=== PATIENT | female | born 1935 | race Caucasian/White ===

== ENCOUNTER 2021-02-14 11:23 | Inpatient (IN) | payer MEDICARE, SELFPAY ==
[2021-02-14] VITALS (8 sets, daily range): BP systolic 133–174; BP diastolic 67–88; PULSE 72–91; RESP 12–18; TEMP 36.3–37.2; O2SAT 97–100; BMI 23.7
--- NOTE | ~2021-02-14 | XR_ITS ---
EXAMINATION: XR chest 1V portable INDICATION: Hyponatremia TECHNIQUE: Portable AP chest at 1821 hours COMPARISON: None available FINDINGS: The lungs are free of acute opacities. There is no pleural effusion or pneumothorax. The ca rdiomediastinal silhouette is normal. There is osteoarthritis of the shoulders. IMPRESSION: 1. No acute cardiopulmonary abnormality. Reviewed, dictated and finalized at location A.
[2021-02-14 12:28] LABS: Basophils Percent Auto 0.1 % (0.2-1.2); Hematocrit 31.4 % (37.0-47.0); Hemoglobin 11.6 g/dL (12.0-15.0); Immature Granulocyte Absolute 0.05 K/mm3 (0.00-0.031); Immature Granulocyte Percent A 0.5 % (0-0.5); Lymphocytes Absolute Auto 0.48 K/mm3 (0.9-3.2); Lymphocytes Percent Auto 4.8 % (18.3-44.2); Mean Corpuscular HGB Conc 36.9 g/dl (32-36); Mean Corpuscular Hemoglobin 34.2 pg (26-34); Mean Corpuscular Volume 92.6 fl (80-100); Mean Platelet Volume 8.5 fl (7.4-10.4); Monocytes Absolute Auto 0.6 K/mm3 (0.1-0.6); Neutrophils Absolute Auto 8.9 K/mm3 (1.3-6.7); Neutrophils Percent Auto 88.6 % (45.5-73.1); Platelet Count Result 250 k/mm3 (150-375); Red Blood Count 3.39 M/mm3 (4.2-5.4); Red Cell Distribution Width 13.3 % (11.5-14.5)
[2021-02-14 12:39] LABS: Partial Thromboplastin Time 33.6 SECONDS (22.3-36.8); Prothrombin Time 12.9 Seconds (11.1-14.7)
[2021-02-14 12:57] LABS: Alanine Aminotransferase 32 U/L (4-35); Albumin Level 4.6 g/dL (3.5-5.1); Alkaline Phosphatase 38 U/L (38-126); Anion Gap 9 mmol/L (8-16); Aspartate Amino Transferase 41 U/L (14-36); Blood Urea Nitrogen 9 mg/dL (7-17); Calcium 9.1 mg/dL (8.4-10.2); Carbon Dioxide 23 mmol/L (22-30); Chloride 82 mmol/L (98-107); Estimated CRCL calculation 43 ml/min; Estimated Glomerular Filt Rate > 60; Glucose 145 mg/dL (65-110); Potassium 3.4 mmol/L (3.4-5.0); Sodium 114 mmol/L (137-145)
[2021-02-14 13:02] LABS: Bilirubin,Total 0.9 mg/dL (0.2-1.3)
--- NOTE | 2021-02-14 14:13 | ED.GENADULT ---
HPI - General Adult General Chief complaint: GI Bleed Stated complaint: WEAKNESS Time Seen by Provider: 02/14/21 13:01 Source: patient History of Present Illness HPI narrative: Patient is a 85 y/o female complaining of severe generalized weakness starting 5 days ago. There is no known alleviating or exacerbating factor. She was seen at [facility] 5 days ago and diagnosed with colitis based on CT scan done there. Her symptoms have not improved since then. She also has some nausea, vomiting and diarrhea with bloody stool. She has no abdominal pain. Related Data Home Medications Medication Instructions Recorded Confirmed amlodipine 02/14/21 02/14/21 ciprofloxacin HCl 02/14/21 folic acid 02/14/21 hydrochlorothiazide 02/14/21 lorazepam 02/14/21 methotrexate sodium 02/14/21 metronidazole 02/14/21 omeprazole 02/14/21 ondansetron 02/14/21 pravastatin 02/14/21 quinapril mg 02/14/21 sulfamethoxazole-trimethoprim tablet 02/14/21 Allergies Allergy/AdvReac Type Severity Reaction Status Date / Time levofloxacin Allergy Unknown Rash Verified 02/14/21 11:39 Penicillins Allergy Unknown Rash Verified 02/14/21 11:39 tetracycline Allergy Unknown Rash Verified 02/14/21 11:39 Review of Systems Constitutional: Constitutional: Denies chills, Denies fever(s), Denies headache(s) and Reports weakness Eyes: Eyes: Denies blurry vision ENT: Denies headache(s) and Denies neck pain Cardiovascular: Cardiovascular: Denies chest pain and Denies dyspnea Respiratory: Respiratory: Denies cough and Denies dyspnea Gastrointestinal: Gastrointestinal: Denies abdominal pain, Reports hematochezia, Reports diarrhea, Reports nausea and Reports vomiting Genitourinary: Genitourinary: Denies hematuria and Denies dysuria Musculoskeletal: Musculoskeletal: Denies back pain and Denies neck pain Neurologic: Denies headache(s) and Reports weakness PMFSH Social History Social History Smoking status: Never smoker Alcohol intake: current Exam Const: General: no acute distress and well developed Orientation/consciousness: oriented to person, oriented to place, oriented to time and patient oriented x3 HENMT: Head: normocephalic Ears: external ears normal General nose exam: Normal external nose present Eyes: General: appearance normal, both eyes and all related structures Conjunctivae: conjunctivae normal Neck: Neck: normal visual inspection and full ROM Chest: Chest palpation & inspection: normal inspection of the chest and no tenderness Resp: Effort & Inspection: normal respiratory effort Auscultation: clear to auscultation bilaterally Cardio: Rate: regular rate Rhythm: regular rhythm GI: GI Palp: No abdominal tenderness and Yes Soft to palpation Skin: General skin exam: normal color and turgor normal Neuro: General: oriented to person, oriented to place, oriented to time and patient oriented x3 Cognition (Neuro): normal cognition Extrem: General: normal to inspection, full ROM and no pedal edema Psych: Appearance: grossly normal Mental Status: mental status grossly normal Affect: normal affect Course Consultations Consultation #1: Discussed with KIRBY Matson, who agrees to admit. Date: 02/14/21 Time: 15:00 Consultation #2: Discussed with Dr Scott, who agrees to consult. Date: 02/14/21 Time: 15:06 Consultation #3: Discussed with Dr. Nettles, who agrees to admit. Date: 02/14/21 Time: 15:25 Vital Signs Vital signs: Vital Signs Temperature 36.6 C 02/14/21 11:28 Pulse Rate 89 02/14/21 11:28 Respiratory Rate 16 02/14/21 11:28 Blood Pressure 174/69 H 02/14/21 11:28 Pulse Oximetry 98 02/14/21 11:28 Temperature 36.6 C 02/14/21 11:28 Pulse Rate 76 02/14/21 15:48 Respiratory Rate 15 02/14/21 15:48 Blood Pressure 146/78 H 02/14/21 15:31 Pulse Oximetry 100 02/14/21 15:48 Medical Decision Making Vital S
[2021-02-14] MEDS: SODIUM CHLORIDE 0.9% IV 1,000 ML 999 ML IV CONT (15:00)
--- NOTE | 2021-02-14 15:18 | ECG_ITS ---
Measurements Intervals [place] Rate: 81 P: 56 HI: 162 QRS: 4 QRSD: 94 T: 10 QT: 375 QTc: 438 Interpretive Statements SINUS RHYTHM BASELINE ARTIFACT- I, II, III, AVR, AVL, AVF, V1-V6 NORMAL ECG Electronically Signed On 02-14-2021 16:26:47 CDT by Theo Proctor D.O.
[2021-02-14] MEDS: KETOROLAC 15 MG/ML VIAL (*BKC) IV PUSH (15:41)
--- NOTE | 2021-02-14 17:08 | PM.CNNEP ---
Assessment and Plan Assessment and plan (1) Hyponatremia: Code(s): E87.1 - Hypo-osmolality and hyponatremia Status: Acute Assessment and Plan: acute versus chronic versus acute on chronic reportedly had a sodium of 127mmol/L about 5 days ago when seen at OSH hold HCTZ check urine electrolytes check TSH, cortisol, SPEP, UPEP, kappa/lambda ratio; check CXR serial sodium levels based on urine electrolytes, consider fluid restriction attempt to get old records for PCP regarding previous sodium levels goal of correction is 4 - 6mmol/L in 24 hours (but not to exceed 8mmol/L) (2) Colitis: Code(s): K52.9 - Noninfective gastroenteritis and colitis, unspecified Status: Acute Assessment and Plan: as noted by previous imaging studies on Flagyl and Cipro consider GI consultation (3) Weakness: Code(s): R53.1 - Weakness Status: Acute Assessment and Plan: presumably due to #2 and possibly worsened by #1 PT/OT as able continue therapy directed at #1 and #2 (4) Hypertension: Code(s): I10 - Essential (primary) hypertension Status: Chronic Assessment and Plan: reasonable control at this time follow trend of hemodynamics Will continue to follow. History of Present Illness Reason for Consult Consult date: 02/15/21 Reason for consult: hyponatremia Chief Complaint Chief complaint: colitis History of Present Illness Narrative: The patient is a 85 y/p female with a past medical history as outlined below who presented to [facility] ER this afternoon with complains of worsening generalized weakness. The patient states that her symptoms of weakness have been going on for about the last 5-7 days if not longer. Associated symptoms included nausea, vomiting, as well as diarrhea. It should also be noted that she was seen at [facility] about a week ago for similar symptoms. From review of the outside hospital records, routine blood test demonstrated relatively stable CBC although her sodium level was noted somewhat low at at 127. CT scan of the abdomen pelvis was significant for sigmoid colitis without any evidence of bowel obstruction as well vascular disease in her renal arteries, postoperative changes from her hysterectomy, and degenerative joint disease. She apparently was in the ER for about 5 hours but was not admitted and was discharged on oral antibiotic therapy for the aforementioned colitis (Flagyl and Bactrim). As her symptoms did not improve and actually seem to be getting progressively worse, she presented to [facility] ER for further evaluation. Workup and evaluation at [facility] Emergency room demonstrated her profound weakness with repeat labs demonstrated a stable hemoglobin and hematocrit but her sodium level was worse at 114. Her chest x-ray was negative and it was presumed that her hyponatremia was due to the a for mentioned GI loss in the form of vomiting and diarrhea. She was subsequently started on IV fluids with subsequent admission to the hospital for further therapy. Her repeat sodium after being on IV fluids had incremented to 117. Renal consultation was requested due to her hyponatremia. Unfortunately, I am not entirely clear how acute or chronic this condition is. As already mentioned, she had a relatively low sodium level about a week ago when she was evaluated at [facility] ER. Repeat testing here and demonstrated worsening of her hyponatremia in comparison to what it was a week ago but I am not entirely sure where her baseline sodium level normally runs. However, with administration of IV normal saline, her sodium level has improved to 117 at the time of my evaluation. She does not report any excessive fluid intake particularly given her nausea and vomiting and actually reports poor oral intake because of the symptoms. She does take hydrochlorothiazide as a chronic
--- NOTE | 2021-02-14 17:50 | PC.NURSE ---
This patient, Mindy Oliver, was admitted to [facility] Surg Room 330-01. Patient/family oriented to hospital policies and general routines including ID bracelet, bed and alarms, visiting hours, pain management, procedures, bathroom and other care routines, personal items, smoking policy, room service/diet, and visiting hours. Information on how to activate the Rapid Response Team has been discussed. Patient/Family are encouraged to report perceived risks to care and to ask questions if they do not understand what they are told or what they should do.
[2021-02-14] MEDS: SODIUM CHLORIDE 0.9% IV 1,000 ML 50 ML IV CONT (18:37)
[2021-02-14 18:41] LABS: Sodium 117 mmol/L (137-145)
[2021-02-14] MEDS: metroNIDAZOLE 500 MG/ISO 100ML 500 MG/100 ML BAG 100 MG IVPB (19:23)
--- NOTE | 2021-02-14 21:29 | PM.IMHP ---
H&P: HPI History of Present Illness Date/Time: 02/14/21 21:29 this is a 85-year-old female patient came to the emergency room after complaining of severe generalized weakness. This started about 5 days ago. The patient stated she has had some nausea and vomiting as well as some diarrhea. She stated that she went to [facility] this past Sunday with the vomiting and dizziness. She stated that she was having blood in her stools well. She does have a history of colitis. The patient stated that she was started on Bactrim and Flagyl. She stated if she was not able to tolerate the Bactrim made her sick to her stomach. She then called her primary care doctor who then placed the patient on Cipro and she continue with Flagyl. The patient also had a urinary tract infection. The patient stated that she has been dizzy and she fell 2 times on Sunday. Her daughter came to stay with her because she has been feeling weak. On 02/09/[address] a [address] of the abdomen and pelvis at [facility]. It was read as sigmoid colitis without associated bowel obstruction. Cardiomegaly and atherosclerotic vascular disease. There was greater than 50% stenosis of the right renal artery origin. Consider Cardiology consultation. Postoperative changes of hysterectomy. Left hip arthroplasty and possibly also appendectomy. Advanced lumbar degenerative disc disease and facet arthropathy with multilevel significant neural foraminal stenosis bilaterally. This could be characterized with non contrast MRI of the lumbar spine. Chest x-ray at [facility] on 02/09/2021 was read as no acute intrathoracic process. The patient stated that she was in their ER for 5 hours and was not admitted. Her sodium was noted to be 127 while at the hospital at [facility] on 02/09 and her potassium was noted to be 3.1. Her H&H was 11.7 and 33.0 on the . Her urine had 2+ nitrates but was negative for everything else. Here at [facility] today her H&H was 11.6 and 31.4 which is comparable to [facility] results. The sodium here was 114 and then came up to 117. Chloride 82. Potassium was 3.4. The patient stated that she does take hydrochlorothiazide at home. Her chest x-ray was read as no acute cardiopulmonary abnormalities. Nephrology has seen the patient and recommends fluid restrictions. The patient was given Toradol in the ER and IV fluids. The patient is being admitted to inpatient services on the date of service of 02/14/2021. Chief Complaint: Weakness Review of Systems Review of Systems: All systems reviewed & are unremarkable except as noted in HPI and below Constitutional: Constitutional: Reports as per HPI and Reports no additional constitutional complaints Eyes: Eyes: Reports as per HPI and Reports no additional eye complaints ENT: Reports system reviewed and no additional complaints, except as documented and Reports Normal hearing present Cardiovascular: Cardiovascular: Reports no additional cardiovascular complaints Respiratory: Respiratory: Reports no additional respiratory complaints and Reports no additional respiratory complaints Gastrointestinal: Gastrointestinal: Reports as per HPI and Reports no additional gastrointestinal complaints Musculoskeletal: Musculoskeletal: Reports no additional musculoskeletal complaints Integumentary/Breasts: Skin/Breast: Reports system reviewed and no additional complaints, except as docu and Reports as per HPI Neurologic: Reports system reviewed and no additional complaints, except as documented, Reports as per HPI and Reports Normal hearing present Psychiatric: Psychiatric: Reports no additional psychiatric complaints and Reports as per HPI Endocrine: Endocrine: Reports no additional endocrine complaints Hematologic/Lymphatic: Hematologic/Lymphatic: Reports no additional hematologic/lymphatic complaints Allergic/Immunologic: Allergic/Immunologic: Reports no additional allergic/immunologic complaints [facility]
[2021-02-14 21:39] LABS: Hematocrit 28.6 % (37.0-47.0); Hemoglobin 10.9 g/dL (12.0-15.0)
[2021-02-14 22:05] LABS: Sodium 117 mmol/L (137-145)
[2021-02-14] MEDS: LORazepam (*CRX) 0.5 MG TABLET PO (22:44)
[2021-02-14] MEDS: PRAVASTATIN SODIUM 10 MG TABLET PO (22:44)
--- NOTE | 2021-02-15 | ECHO_ITS ---
Patient Info Name: Mindy Oliver Age: 85 years : 1935 Gender: Female Ht: 63 in Wt: 131 lbs BSA: 1.63 m2 HR: 85 bpm BP: 128 / 62 mmHg Heart Rhythm: Sinus Rhythm Exam Date: 02/15/2021 10:14 AM Exam Location: [facility] Patient Status: Inpatient Admit Date: 02/14/2021 Staff Ordering Physician: Huyen Dominguez NP Wardrobe Attendant: Liam Bermudez RDCS, RT Attending Provider: Rekha Baldwin PA-C Referring Physician: Alberto TATE; Exam Type: CA echo doppler color flow Study Info Indications R01.1 - Cardiac murmur, unspecified Complete two-dimensional, color flow and Doppler transthoracic echocardiogram is performed. Strain analysis performed. Summary 1. Complete two-dimensional, color flow and Doppler transthoracic echocardiogram is performed. 2. Left ventricular chamber size, wall thickness, systolic function are normal with no regional wall motion abnormalities with an estimated ejection fraction of 60-65%. Global longitudinal strain was also normal -19%. Grade 1 diastolic dysfunction is present. 3. There is mild aortic valve calcification without stenosis. 4. There is trace tricuspid valve regurgitation. 5. Pulmonary pressure could not be estimated on this study. 6. Normal sinus rhythm. Left Ventricle Left ventricular chamber size, wall thickness, systolic function are normal with no regional wall motion abnormalities with an estimated ejection fraction of 60-65%. Global longitudinal strain was also normal -19%. Grade 1 diastolic dysfunction is present. Left ventricular chamber dimension is normal. Left ventricular systolic function is normal, estimated at 60-65%. There is no increased left ventricular wall thickness. Left ventricular septal wall motion is normal. The left ventricular diastolic function is grade I diastolic dysfunction. Global longitudinal strain is normal at 19 %. Right Ventricle Right ventricular chamber dimension is normal. Right ventricular systolic function is normal. Left Atria Left atrial chamber dimension is normal. Right Atria Right atrial chamber dimension is normal. Aortic Valve The aortic valve is trileaflet. There is no aortic valve sclerosis. There is no aortic valve stenosis. There is no aortic valve regurgitation. There is mild aortic valve calcification without stenosis. Pulmonic Valve The pulmonic valve is normal. There is no pulmonic valve stenosis. There is no pulmonic regurgitation. Mitral Valve The mitral valve has normal leaflets. There is no mitral valve stenosis. There is no mitral valve regurgitation. Tricuspid Valve The tricuspid valve leaflets are normal. There is no significant tricuspid valve stenosis. There is trace tricuspid valve regurgitation. No pulmonary hypertension, estimated pulmonary arterial systolic pressure is Empty. Pericardium/Pleural The pericardium appears normal. There is no pericardial effusion. Inferior Vena Cava Normal inferior vena cava with >50% collapse upon inspiration consistent with Empty right atrial pressure, Empty. Aorta The aortic root size at the sinus of Valsalva is normal. The prox ascending aorta size is normal. Left Ventricular Outflow Tract Name Value Normal LVOT 2D
[2021-02-15 02:41] LABS: Hematocrit 28.4 % (37.0-47.0); Hemoglobin 10.4 g/dL (12.0-15.0)
[2021-02-15 02:49] LABS: Lactic Acid Reflex 0.6 mmol/L (0.7-2.1)
[2021-02-15 03:00] LABS: Alanine Aminotransferase 25 U/L (4-35); Albumin Level 3.6 g/dL (3.5-5.1); Alkaline Phosphatase 29 U/L (38-126); Anion Gap 10 mmol/L (8-16); Aspartate Amino Transferase 34 U/L (14-36); Bilirubin,Total 0.9 mg/dL (0.2-1.3); Blood Urea Nitrogen 8 mg/dL (7-17); CRP 1.5 mg/dL (<1.0); Calcium 8.5 mg/dL (8.4-10.2); Carbon Dioxide 19 mmol/L (22-30); Chloride 90 mmol/L (98-107); Creatine Kinase 430 U/L (30-135); Estimated CRCL calculation 42 ml/min; Estimated Glomerular Filt Rate > 60; Glucose 97 mg/dL (65-110); Lactate Dehydrogenase 475 U/L (313-618); Magnesium 1.6 mg/dL (1.6-2.3); Potassium 3.1 mmol/L (3.4-5.0); Sodium 119 mmol/L (137-145)
[2021-02-15] MEDS: metroNIDAZOLE 500 MG/ISO 100ML 500 MG/100 ML BAG 100 MG IVPB ×3 (03:38→17:17)
[2021-02-15 06:00] VITALS: BP 128/62; PULSE 72; RESP 18; TEMP 36.4; O2SAT 100
[2021-02-15 06:31] LABS: Creatinine Urine 35.1 mg/dL
[2021-02-15 06:46] LABS: Creatinine Urine 34.5 mg/dL; Total Protein Urine Random 16 mg/dL; Ur Ttl Prot Creatinine Ratio 0.46 mg/mg (0-0.20)
[2021-02-15 07:13] LABS: Sodium Urine Random 26 meq/L
--- NOTE | 2021-02-15 07:17 | WPDGICN ---
Assessment and Plan Assessment and plan (1) Colitis: Code(s): K52.9 - Noninfective gastroenteritis and colitis, unspecified Status: Acute Assessment and Plan: CT scan from few days ago reviewed, she is already feeling better with flagyl probably gastroenteritis and doing better we can do colonoscopy in ~ 6-8 weeks to document healing hb is stable (2) Nausea and vomiting in adult: Code(s): R11.2 - Nausea with vomiting, unspecified Status: Acute Assessment and Plan: resolved and tolerating diet (3) Hyponatremia: Code(s): E87.1 - Hypo-osmolality and hyponatremia Status: Acute Assessment and Plan: probably multifactorial from n/v, colitis but unknown if acute on chronic correcting na slowly- monitored by nephrology patient is feeling much better today (4) Rheumatoid arthritis: Code(s): M06.9 - Rheumatoid arthritis, unspecified Status: Chronic Assessment and Plan: on low dose of prednisone at home, also MTX (5) Diarrhea: Code(s): R19.7 - Diarrhea, unspecified Status: Acute GI Consult Note Consult date/time: 02/15/21 07:17 Reason for consult: colitis, nausea and vomiting HPI: Mindy Oliver is a 85 year old female with h/o RA on MTX and low dose prednisone who came to the emergency room with progressive generalized weakness that started about 6 days ago, initially with nausea and vomiting as well as soft stools and low grade fever for which she went to [facility] ER (denies sick contacts), also small amount of blood in stools, given Bactrim and Flagyl but says that could not tolerate bactrim and her primary switched to criprofloxacin and continue flagyl. She had CT of the abdomen and pelvis at [facility] that was reviewed and showed sigmoid colitis without associated bowel obstruction, postoperative changes of hysterectomy, advanced lumbar degenerative disc disease and facet arthropathy with multilevel significant neural foraminal stenosis bilaterally. Blood work in that visit also showed low sodium at 127, potassium 3.1, hb 11.7. Then she was released home with those antibiotics but still feeling weak and poor appetite. Repeat blood work here showed Hb 11.6 but lower sodium 114. Today is feeling better, na up to 123 (nephrology on board and monitoring for overcorrection), tolerating soft diet, no blood in stools or pain. She had colonoscopies in the past, last time about 5 years ago. Review of Systems Constitutional: Constitutional: Reports weakness Eyes: Eyes: Denies blurry vision ENT: Reports Normal hearing present Cardiovascular: Cardiovascular: Denies chest pain Respiratory: Respiratory: Denies dyspnea Gastrointestinal: Gastrointestinal: Reports diarrhea, Reports nausea and Reports vomiting Genitourinary: Genitourinary: Denies hematuria Musculoskeletal: Musculoskeletal: Denies neck pain Integumentary/Breasts: Skin/Breast: Denies dry skin Neurologic: Reports system reviewed and no additional complaints, except as documented Psychiatric: Psychiatric: Reports no additional psychiatric complaints [facility] Past Medical History Medical History (Updated 02/15/21 @ 14:03 by Forest Castanon MD) Anxiety Chronic GERD Diarrhea Hyperlipidemia Hypertension Nausea and vomiting in adult Rheumatoid arthritis Surgical History Surgical History (Updated 02/14/21 @ 21:45 by Huyen Dominguez NP) H/O breast biopsy Left breast H/O cataract extraction H/O myringotomy H/O toe surgery H/O: hysterectomy History of appendectomy History of left hip replacement History of left knee replacement Family History Family History (Updated 02/14/21 @ 21:40 by Huyen Dominguez NP) Father Hypertension CAD (coronary artery disease) TIA (transient ischemic attack) Mother Hypertension Heart attack Acute myocardial infarction Carotid artery disease Social History Social History (Updated 02/14/21 @ 21:40 by
[2021-02-15 08:34] VITALS: PULSE 88
[2021-02-15] MEDS: predniSONE 5 MG TABLET PO (08:34)
[2021-02-15] MEDS: FOLIC ACID 1 MG TABLET PO (08:34)
[2021-02-15] MEDS: atenoloL 25 MG TABLET PO (08:34)
[2021-02-15] MEDS: amLODIPine BESYLATE 5 MG TABLET PO (08:34)
[2021-02-15] MEDS: LORazepam (*CRX) 0.5 MG TABLET PO ×2 (08:39→21:45)
[2021-02-15 09:01] LABS: Anion Gap 7 mmol/L (8-16); Blood Urea Nitrogen 8 mg/dL (7-17); Calcium 8.7 mg/dL (8.4-10.2); Carbon Dioxide 24 mmol/L (22-30); Chloride 92 mmol/L (98-107); Estimated CRCL calculation 42 ml/min; Estimated Glomerular Filt Rate > 60; Glucose 112 mg/dL (65-110); Potassium 3.1 mmol/L (3.4-5.0); Sodium 123 mmol/L (137-145)
[2021-02-15] MEDS: ACETAMINOPHEN 500 MG TABLET 1000 MG PO ×2 (09:54→21:45)
[2021-02-15] MEDS: PANTOPRAZOLE SOD SESQUIHYDRATE 20 MG TAB PO (10:07)
[2021-02-15] MEDS: DEXTROSE 5% IN WATER 500 ML 200 ML IV CONT (10:20)
--- NOTE | 2021-02-15 10:22 | P.PNNP_ITS ---
Progress Note: A&P Assessment and Plan (1) Hyponatremia: Code(s): E87.1 - Hypo-osmolality and hyponatremia Status: Acute Assessment and Plan: * acute versus chronic versus acute on chronic * evidence of overcorrection by AM labs - will give D5W IVFs and stop fluid restriction for now - repeat sodium level one hour after D5W infusion * follow up on SPEP/UPEP, kappa/lamda ratio, and serum/urine osmolality * urine sodium low somewhat suggestive of volume depletion * CXR negative; TSH okay but cortisol lowish (but on steroids already so hard to interpret) * attempt to get old records for PCP regarding previous sodium levels * goal of correction is 4 - 6mmol/L in 24 hours (but not to exceed 8mmol/L) - she has overcorrected as she should not have exceeded 122mmol/L prior to noon today - administration of D5W as above * follow repeat sodium levels (2) Colitis: Code(s): K52.9 - Noninfective gastroenteritis and colitis, unspecified Status: Acute Assessment and Plan: * as noted by previous imaging studies * on Flagyl and Cipro * Gastroenterology consulted for further evaluation (3) Weakness: Code(s): R53.1 - Weakness Status: Acute Assessment and Plan: * presumably due to #2 and possibly worsened by #1 * PT/OT as able * continue therapy directed at #1 and #2 (4) Hypertension: Code(s): I10 - Essential (primary) hypertension Status: Chronic Assessment and Plan: * reasonable control at this time * follow trend of hemodynamics Will continue to follow. Subjective Date/time seen: 02/15/21 10:22 Overall, states she is feeling/doing much better in comparison to admission; feels a bit stronger at this time; no issues/problems overnight or earlier this AM; remains hemodynamically stable; no other acute complaints voiced at the time of my visit. Exam Narrative: General: WD/WN female in NAD Heart: normal S1 and S2; no rub Lungs: clear to auscultation Abdomen: soft, nontender, nondistended, positive bowel sounds Extremities: no cyanosis or clubbing; no edema Skin: warm and dry Objective Data Vital Signs Vital Signs: Vital Signs Temp Pulse Resp BP Pulse Ox 02/15/21 08:34 88 02/15/21 06:00 36.4 C L 72 18 128/62 100 02/14/21 22:00 36.3 C L 72 18 158/67 H 02/14/21 20:15 72 18 02/14/21 17:50 37.2 C 88 18 170/75 H 02/14/21 17:29 77 16 133/85 97 02/14/21 15:48 76 15 02/14/21 15:31 80 12 146/78 H 02/14/21 11:48 91 13 148/88 H 99 02/14/21 11:28 36.6 C 89 16 174/69 H 98 Intake/Output Intake/Output: Intake & Output 02/12/21 02/13/21 02/14/21 02/15/21 23:59 23:59 23:59 23:59 Intake Total 1100 830 Output Total 550 Balance 1100 280 Meds/Results Medications: Active Medications Generic Name Dose Route Start Last Admin Trade Name Chinoq PRN Reason Stop Dose Admin Acetaminophen 1,000 mg 02/15/21 08:43 Acetaminophen 500 Mg Tablet PO DAILY PRN Pain Acetaminophen 1,000 mg 02/15/21 09:00 02/15/21 09:54 Acetaminophen 500 Mg Tablet PO 1,000 mg Q12H [facility] Administratio
--- NOTE | 2021-02-15 10:22 | PM.PNNEP ---
Progress Note: A&P Assessment and Plan (1) Hyponatremia: Code(s): E87.1 - Hypo-osmolality and hyponatremia Status: Acute Assessment and Plan: acute versus chronic versus acute on chronic evidence of overcorrection by AM labs - will give D5W IVFs and stop fluid restriction for now - repeat sodium level one hour after D5W infusion follow up on SPEP/UPEP, kappa/lamda ratio, and serum/urine osmolality urine sodium low somewhat suggestive of volume depletion CXR negative; TSH okay but cortisol lowish (but on steroids already so hard to interpret) attempt to get old records for PCP regarding previous sodium levels goal of correction is 4 - 6mmol/L in 24 hours (but not to exceed 8mmol/L) - she has overcorrected as she should not have exceeded 122mmol/L prior to noon today - administration of D5W as above follow repeat sodium levels (2) Colitis: Code(s): K52.9 - Noninfective gastroenteritis and colitis, unspecified Status: Acute Assessment and Plan: as noted by previous imaging studies on Flagyl and Cipro Gastroenterology consulted for further evaluation (3) Weakness: Code(s): R53.1 - Weakness Status: Acute Assessment and Plan: presumably due to #2 and possibly worsened by #1 PT/OT as able continue therapy directed at #1 and #2 (4) Hypertension: Code(s): I10 - Essential (primary) hypertension Status: Chronic Assessment and Plan: reasonable control at this time follow trend of hemodynamics Will continue to follow. Subjective Date/time seen: 02/15/21 10:22 Overall, states she is feeling/doing much better in comparison to admission; feels a bit stronger at this time; no issues/problems overnight or earlier this AM; remains hemodynamically stable; no other acute complaints voiced at the time of my visit. Exam Narrative: General: WD/WN female in NAD Heart: normal S1 and S2; no rub Lungs: clear to auscultation Abdomen: soft, nontender, nondistended, positive bowel sounds Extremities: no cyanosis or clubbing; no edema Skin: warm and dry Objective Data Vital Signs Vital Signs: Vital Signs Temp Pulse Resp BP Pulse Ox 02/15/21 08:34 88 02/15/21 06:00 36.4 C L 72 18 128/62 100 02/14/21 22:00 36.3 C L 72 18 158/67 H 100 02/14/21 20:15 72 18 100 02/14/21 17:50 37.2 C 88 18 170/75 H 100 02/14/21 17:29 77 16 133/85 97 02/14/21 15:48 76 15 100 02/14/21 15:31 80 12 146/78 H 100 02/14/21 11:48 91 13 148/88 H 99 02/14/21 11:28 36.6 C 89 16 174/69 H 98 Intake/Output Intake/Output: Intake & Output 02/12/21 02/13/21 02/14/21 02/15/21 23:59 23:59 23:59 23:59 Intake Total 1100 830 Output Total 550 Balance 1100 280 Meds/Results Medications: Active Medications Generic Name Dose Route Start Last Admin Trade Name Chinoq PRN Reason Stop Dose Admin Acetaminophen 1,000 mg 02/15/21 08:43 Acetaminophen 500 Mg Tablet PO DAILY PRN Pain Acetaminophen 1,000 mg 02/15/21 09:00 02/15/21 09:54 Acetaminophen 500 Mg Tablet PO 1,000 mg Q12H BURKE Administration Amlodipine Besylate 5 mg 02/15/21 09:00 02/15/21 08:34 Amlodipine Besylate 5 Mg Tablet PO 5 mg DAILY BURKE Administration Atenolol 25 mg 02/15/21 09:00 02/15/21 08:34 Atenolol 25 Mg Tablet PO 25 mg DAILY BURKE Administration Cyclobenzaprine HCl 10 mg 02/14/21 21:26 Cyclobenzaprine Hcl 10 Mg Tablet PO BID PRN Muscle Spasm Folic Acid 1 mg 02/15/21 09:00 02/15/21 08:34 Folic Acid 1 Mg Tablet PO 1 mg DAILY BURKE Administration Metronidazole 500 mg in 100 mls @ 100 mls/hr 02/14/21 18:00 02/15/21 09:52 Flagyl 500 Mg/Iso Soln 100 Ml IVPB 100 mls/hr Q8H BURKE Administration Dextrose 500 mls @ 200 mls/hr 02/15/21 10:05 02/15/21 10:20 Dextrose 5% In Water IV CONT 02/15/21 1
[2021-02-15 10:58] LABS: Hematocrit 31.5 % (37.0-47.0); Hemoglobin 11.9 g/dL (12.0-15.0)
[2021-02-15 14:00] VITALS: BP 129/64; PULSE 75; RESP 18; TEMP 36.6; O2SAT 99
--- NOTE | 2021-02-15 14:17 | PM.IMPN ---
Progress Note: A&P Assessment and Plan (1) Hyponatremia: Code(s): E87.1 - Hypo-osmolality and hyponatremia Status: Acute Assessment and Plan: Last sodium 123, up from 114 yesterday -no records available to me to indicate what her baseline sodium is -continue to hold hydrochlorothiazide and methotrexate -nephrology on board and has ordered pending workup (2) Colitis: Code(s): K52.9 - Noninfective gastroenteritis and colitis, unspecified Status: Acute Assessment and Plan: Outside records indicates she had sigmoid colitis -continue Flagyl, add Cipro -patient states her allergy to Levaquin is with leg weakness but that she takes Cipro very often (3) Weakness: Code(s): R53.1 - Weakness Status: Acute Assessment and Plan: Likely due to above -continue PT and OT evaluation. (4) Hypertension: Code(s): I10 - Essential (primary) hypertension Status: Chronic Assessment and Plan: Last blood pressure 129/64 - Continue with atenolol and amlodipine. (5) Hyperlipidemia: Code(s): E78.5 - Hyperlipidemia, unspecified Status: Chronic Assessment and Plan: Chronic and stable, Continue with pravastatin. (6) Anxiety: Code(s): F41.9 - Anxiety disorder, unspecified Status: Chronic Assessment and Plan: Chronic and stable. Continue Ativan (7) Chronic GERD: Code(s): K21.9 - Gastro-esophageal reflux disease without esophagitis Status: Chronic Assessment and Plan: Continue Protonix (8) Rheumatoid arthritis: Code(s): M06.9 - Rheumatoid arthritis, unspecified Status: Chronic Assessment and Plan: Hold methotrexate Time Spent With Patient Time with patient: 25 - 35 minutes Subjective Date/time seen: 02/15/21 14:17 Interval history: Pt is a 85-year-old female here for weakness and hyponatremia. Patient was seen today and states she is feeling much better. She feels stronger than she did yesterday. She had a little bit of soft stool yesterday with some blood mixed in and on the toilet paper that she attributes to her. She denies abdominal pain, chest pain, shortness of breath, nausea, vomiting or fevers. She is very worried about not being on her Cipro as she was told she had a urinary tract infection. She states that she can take Cipro but is unable to take Levaquin because it makes her legs weak. She has taken Cipro many times in the past and has not had any issues with that. She does mention that she has not been sleeping very well. Review of Systems Review of Systems: All systems reviewed & are unremarkable except as noted in HPI and below Exam Narrative: General: Well developed well nourished patient in NAD HEENT: normocephalic Neck: supple Neuro: Alert and oriented x4. Cranial nerves 2-12 intact. Equal strength the upper lower extremity 5/5. Able to do [id number] and rapid alternating movements CV:RRR Resp:CTA Abd: Soft, non distended. No pain to palpation. Positive bowel sounds Extremities: No swelling, erythema, or pain to palpation. Objective Data Vital Signs Vital Signs: Vital Signs - 24 hr 02/14/21 15:31 02/14/21 15:48 02/14/21 17:29 Temperature Pulse Rate 80 76 77 Respiratory Rate 12 15 16 Blood Pressure 146/78 H 133/85 Pulse Oximetry 100 100 97 02/14/21 17:50 02/14/21 20:15 02/14/21 22:00 Temperature 98.9 F 97.3 F L Pulse Rate 88 72 72 Respiratory Rate 18 18 18 Blood Pressure 170/75 H 158/67 H Pulse Oximetry 100 100 100 02/15/21 06:00 02/15/21 08:34 02/15/21 14:00 Temperature 97.5 F L 97.9 F Pulse Rate 72 88 75 Respiratory Rate 18 18 Blood Pressure 128/62 129/64 Pulse Oximetry 100 99 Intake/Output Intake/Output: Intake & Output 02/12/21 02/13/21 02/14/21 02/15/21 23:59 23:59 23:59 23:59 Intake Total 1100 1760 Output Total 550 Balance 1100 1210
[2021-02-15] MEDS: POTASSIUM CHLORIDE 20 MEQ TABLET 40 MEQ PO (14:30)
[2021-02-15 15:15] LABS: Hematocrit 32.9 % (37.0-47.0); Hemoglobin 11.8 g/dL (12.0-15.0)
--- NOTE | 2021-02-15 15:18 | PC.NURSE ---
On 02/15/21, the student, [Mery Carter ], provided care and completed [facility] documentation on this patient. I have reviewed the student's documentation and agree with the findings.
[2021-02-15 15:31] LABS: Sodium 121 mmol/L (137-145)
[2021-02-15 19:09] LABS: Sodium 125 mmol/L (137-145)
[2021-02-15 20:00] VITALS: PULSE 74; RESP 20; O2SAT 100
[2021-02-15] MEDS: CIPROFLOXACIN 500 MG TAB PO (21:45)
[2021-02-15] MEDS: PRAVASTATIN SODIUM 10 MG TABLET PO (21:46)
[2021-02-15 21:47] VITALS: O2SAT 99
[2021-02-15 22:00] VITALS: BP 156/74; PULSE 74; RESP 20; TEMP 36.3; O2SAT 100
[2021-02-15 23:13] LABS: Sodium 126 mmol/L (137-145)
[2021-02-16] MEDS: MELATONIN 5 MG TABLET PO ×2 (01:02→22:11)
[2021-02-16] MEDS: metroNIDAZOLE 500 MG/ISO 100ML 500 MG/100 ML BAG 100 MG IVPB ×3 (02:58→18:56)
[2021-02-16] MEDS: ONDANSETRON INJ 4 MG/2 ML VIAL IV PUSH (04:04)
[2021-02-16 06:00] VITALS: BP 110/53; PULSE 63; RESP 18; TEMP 36.6; O2SAT 99
[2021-02-16 06:40] LABS: Hematocrit 28.4 % (37.0-47.0); Hemoglobin 10.2 g/dL (12.0-15.0); Mean Corpuscular HGB Conc 35.9 g/dl (32-36); Mean Corpuscular Hemoglobin 34.6 pg (26-34); Mean Corpuscular Volume 96.3 fl (80-100); Mean Platelet Volume 8.8 fl (7.4-10.4); Platelet Count Result 255 k/mm3 (150-375); Red Blood Count 2.95 M/mm3 (4.2-5.4); Red Cell Distribution Width 13.6 % (11.5-14.5); White Blood Count 7.3 K/mm3 (4.5-10.0)
[2021-02-16 06:56] LABS: Albumin Level 3.6 g/dL (3.5-5.1); Anion Gap 7 mmol/L (8-16); Blood Urea Nitrogen 12 mg/dL (7-17); Calcium 8.9 mg/dL (8.4-10.2); Carbon Dioxide 22 mmol/L (22-30); Chloride 99 mmol/L (98-107); Estimated CRCL calculation 42 ml/min; Estimated Glomerular Filt Rate > 60; Glucose 106 mg/dL (65-110); Phosphorus 2.9 mg/dL (2.5-4.5); Potassium 3.5 mmol/L (3.4-5.0); Sodium 128 mmol/L (137-145)
[2021-02-16 08:00] VITALS: O2SAT 98
[2021-02-16 08:24] VITALS: O2SAT 98
[2021-02-16] MEDS: ACETAMINOPHEN 500 MG TABLET 1000 MG PO ×2 (08:43→22:11)
[2021-02-16] MEDS: FOLIC ACID 1 MG TABLET PO (08:44)
[2021-02-16] MEDS: PANTOPRAZOLE SOD SESQUIHYDRATE 20 MG TAB PO (08:44)
[2021-02-16] MEDS: amLODIPine BESYLATE 5 MG TABLET PO (08:44)
[2021-02-16] MEDS: predniSONE 5 MG TABLET PO (08:44)
[2021-02-16] MEDS: CIPROFLOXACIN 500 MG TAB PO ×2 (08:44→20:10)
[2021-02-16 08:45] VITALS: PULSE 88
[2021-02-16] MEDS: atenoloL 25 MG TABLET PO (08:45)
[2021-02-16] MEDS: LORATADINE 10 MG TABLET PO (08:46)
[2021-02-16] MEDS: LORazepam (*CRX) 0.5 MG TABLET PO ×2 (08:50→22:12)
[2021-02-16 14:00] VITALS: BP 137/55; PULSE 64; RESP 16; TEMP 36.6; O2SAT 100
--- NOTE | 2021-02-16 14:16 | WPDGIPROGNO ---
Progress Note: A&P Assessment and Plan (1) Colitis: Code(s): K52.9 - Noninfective gastroenteritis and colitis, unspecified Status: Acute Assessment and Plan: slowly improved with less diarrhea and eating more on antibiotics we can do colonoscopy 6-8 weeks as outpatient abdominal discomfort improved and only after using restroom probably go home tomorrow if na stable (2) Nausea and vomiting in adult: Code(s): R11.2 - Nausea with vomiting, unspecified Status: Acute Assessment and Plan: better, tolerating diet (3) Hyponatremia: Code(s): E87.1 - Hypo-osmolality and hyponatremia Status: Acute Assessment and Plan: monitoring closely and improved, by nephrology (4) Rheumatoid arthritis: Code(s): M06.9 - Rheumatoid arthritis, unspecified Status: Chronic (5) Diarrhea: Code(s): R19.7 - Diarrhea, unspecified Status: Acute Subjective Date/time seen: 02/16/21 14:16 Interval history: slightly better, stool getting formed Review of Systems Review of Systems: All systems reviewed & are unremarkable except as noted in HPI and below Exam Const: General: comfortable and no acute distress HENMT: General nose exam: Normal nares present Eyes: General: appearance normal, both eyes and all related structures Neck: Neck: no JVD Resp: Auscultation: clear to auscultation bilaterally Cardio: Rate: regular rate Rhythm: regular rhythm GI: Inspection: non-distended GI Palp: Yes Soft to palpation and No Guarding due to palpation present (GI) Auscultation: normal bowel sounds Skin: General skin exam: normal color Neuro: Speech: normal speech Motor exam (neuro): Normal motor muscle tone present throughout Extrem: General: normal to inspection Psych: Mental Status: mental status grossly normal Objective Data Vital Signs Vital Signs: Vital Signs - 24 hr 02/15/21 20:00 02/15/21 21:47 02/15/21 22:00 Temperature 97.3 F L Pulse Rate 74 74 Respiratory Rate 20 20 Blood Pressure 156/74 H Pulse Oximetry 100 99 100 02/16/21 06:00 02/16/21 08:00 02/16/21 08:24 Temperature 97.8 F Pulse Rate 63 Respiratory Rate 18 Blood Pressure 110/53 L Pulse Oximetry 99 98 98 02/16/21 08:45 Temperature Pulse Rate 88 Respiratory Rate Blood Pressure Pulse Oximetry Intake/Output Intake/Output: Intake & Output 02/13/21 02/14/21 02/15/21 02/16/21 23:59 23:59 23:59 23:59 Intake Total 1100 2850 830 Output Total 1250 900 Balance 1100 1600 -70 Meds/Results Medications: Active Medications Generic Name Dose Route Start Last Admin Trade Name Kyung PRN Reason Stop Dose Admin Acetaminophen 1,000 mg 02/15/21 08:43 Acetaminophen 500 Mg Tablet PO DAILY PRN Pain Acetaminophen 1,000 mg 02/15/21 09:00 02/16/21 08:43 Acetaminophen 500 Mg Tablet PO 1,000 mg Q12H BURKE Administration Amlodipine Besylate 5 mg 02/15/21 09:00 02/16/21 08:44 Amlodipine Besylate 5 Mg Tablet PO 5 mg DAILY BURKE Administration Atenolol 25 mg 02/15/21 09:00 02/16/21 08:45 Atenolol 25 Mg Tablet PO 25 mg DAILY BURKE Administration Ciprofloxacin 500 mg 02/15/21 21:00 02/16/21 08:44 Ciprofloxacin 500 Mg Tab PO 500 mg Q12HR BURKE Administration Cyclobenzaprine HCl 10 mg 02/14/21 21:26 Cyclobenzaprine Hcl 10 Mg Tablet PO BID PRN Muscle Spasm Folic Acid 1 mg 02/15/21 09:00 02/16/21 08:44 Folic Acid 1 Mg Tablet PO 1 mg DAILY BURKE Administration Metronidazole 500 mg in 100 mls @ 100 mls/hr 02/14/21 18:00 02/16/21 08:58 Flagyl 500 Mg/Iso Soln 100 Ml IVPB 100 mls/hr Q8H BURKE Administration Loratadine 10 mg 02/16/21 09:00 02/16/21 08:46 Loratadine 10 Mg Tablet PO 10 mg QAM BURKE Administration Lorazepam 0.5 mg 02/15/21 21:00 02/16/21 08:50 Lorazepam (*Crx) 0.5 Mg Tablet PO 0.5 mg Q12H BURKE Administration Melatonin 5 mg 02/15/21 21:00
--- NOTE | 2021-02-16 16:00 | PM.PNNEP ---
Progress Note: A&P Assessment and Plan (1) Hyponatremia: Code(s): E87.1 - Hypo-osmolality and hyponatremia Status: Acute Assessment and Plan: PCP records document sodium levels ~ 132 - 133 since May 2020 evidence of overcorrection by AM on 02/15/21 - stabilized with use of D5W IV fluids follow up on SPEP/UPEP, kappa/lamda ratio, and serum/urine osmolality urine sodium low somewhat suggestive of volume depletion CXR negative; TSH okay but cortisol lowish (but on steroids already so hard to interpret) goal of correction is 4 - 6mmol/L in 24 hours (but not to exceed 8mmol/L) - this is being achieved as of now follow repeat sodium levels (2) Colitis: Code(s): K52.9 - Noninfective gastroenteritis and colitis, unspecified Status: Acute Assessment and Plan: as noted by previous imaging studies on Flagyl and Cipro Gastroenterology recommendations noted (3) Weakness: Code(s): R53.1 - Weakness Status: Acute Assessment and Plan: presumably due to #2 and possibly worsened by #1 PT/OT as able continue therapy directed at #1 and #2 (4) Hypertension: Code(s): I10 - Essential (primary) hypertension Status: Chronic Assessment and Plan: reasonable control at this time follow trend of hemodynamics Will continue to follow. Subjective Date/time seen: 02/16/21 16:00 Continues to make slow and steady improvement since admission; GI symptoms seems to be stabilizing if not better in general; sodium correcting appropriately with rate of change stable following D5W IVF administration yesterday; no events/issues overnight or earlier this AM. Exam Narrative: General: WD/WN female in NAD Heart: normal S1 and S2; no rub Lungs: clear to auscultation Abdomen: soft, nontender, nondistended, positive bowel sounds Extremities: no cyanosis or clubbing; no edema Skin: warm and intact Objective Data Vital Signs Vital Signs: Vital Signs Temp Pulse Resp BP Pulse Ox 02/16/21 14:00 36.6 C 64 16 137/55 L 100 02/16/21 08:45 88 02/16/21 08:24 98 02/16/21 08:00 98 02/16/21 06:00 36.6 C 63 18 110/53 L 99 02/15/21 22:00 36.3 C L 74 20 156/74 H 100 02/15/21 21:47 99 02/15/21 20:00 74 20 100 Intake/Output Intake/Output: Intake & Output 02/13/21 02/14/21 02/15/21 02/16/21 23:59 23:59 23:59 23:59 Intake Total 1100 2850 830 Output Total 1250 900 Balance 1100 1600 -70 Meds/Results Medications: Active Medications Generic Name Dose Route Start Last Admin Trade Name Kyung PRN Reason Stop Dose Admin Acetaminophen 1,000 mg 02/15/21 08:43 Acetaminophen 500 Mg Tablet PO DAILY PRN Pain Acetaminophen 1,000 mg 02/15/21 09:00 02/16/21 08:43 Acetaminophen 500 Mg Tablet PO 1,000 mg Q12H BURKE Administration Amlodipine Besylate 5 mg 02/15/21 09:00 02/16/21 08:44 Amlodipine Besylate 5 Mg Tablet PO 5 mg DAILY BURKE Administration Atenolol 25 mg 02/15/21 09:00 02/16/21 08:45 Atenolol 25 Mg Tablet PO 25 mg DAILY BURKE Administration Ciprofloxacin 500 mg 02/15/21 21:00 02/16/21 08:44 Ciprofloxacin 500 Mg Tab PO 500 mg Q12HR BURKE Administration Cyclobenzaprine HCl 10 mg 02/14/21 21:26 Cyclobenzaprine Hcl 10 Mg Tablet PO BID PRN Muscle Spasm Folic Acid 1 mg 02/15/21 09:00 02/16/21 08:44 Folic Acid 1 Mg Tablet PO 1 mg DAILY BURKE Administration Metronidazole 500 mg in 100 mls @ 100 mls/hr 02/14/21 18:00 02/16/21 08:58 Flagyl 500 Mg/Iso Soln 100 Ml IVPB 100 mls/hr Q8H BURKE Administration Loratadine 10 mg 02/16/21 09:00 02/16/21 08:46 Loratadine 10 Mg Tablet PO 10 mg QAM BURKE Administration Lorazepam 0.5 mg 02/15/21 21:00 02/16/21 08:50 Lorazepam (*Crx) 0.5 Mg Tablet PO 0.5 mg Q12H BURKE Administration Melatonin 5 mg 02/15/21 21:00 02/16/21 01:02 Tess
--- NOTE | 2021-02-16 16:11 | PM.IMPN ---
Progress Note: A&P Assessment and Plan (1) Hyponatremia: Code(s): E87.1 - Hypo-osmolality and hyponatremia Status: Acute Assessment and Plan: Last sodium 128, up from 114 on admission -08/16/20 she had a sodium of 132 -continue to hold hydrochlorothiazide and methotrexate -nephrology on board and has ordered pending workup (2) Colitis: Code(s): K52.9 - Noninfective gastroenteritis and colitis, unspecified Status: Acute Assessment and Plan: Outside records indicates she had sigmoid colitis -continue Flagyl and Cipro -patient states her allergy to Levaquin is with leg weakness but that she takes Cipro very often (3) Weakness: Code(s): R53.1 - Weakness Status: Acute Assessment and Plan: Likely due to above -continue PT and OT evaluation. (4) Hypertension: Code(s): I10 - Essential (primary) hypertension Status: Chronic Assessment and Plan: Last blood pressure 137/55 - Continue with atenolol and amlodipine. (5) Hyperlipidemia: Code(s): E78.5 - Hyperlipidemia, unspecified Status: Chronic Assessment and Plan: Chronic and stable, Continue with pravastatin. (6) Anxiety: Code(s): F41.9 - Anxiety disorder, unspecified Status: Chronic Assessment and Plan: Chronic and stable. Continue Ativan (7) Chronic GERD: Code(s): K21.9 - Gastro-esophageal reflux disease without esophagitis Status: Chronic Assessment and Plan: Continue Protonix (8) Rheumatoid arthritis: Code(s): M06.9 - Rheumatoid arthritis, unspecified Status: Chronic Assessment and Plan: Hold methotrexate due to possible infectious colitis Subjective Date/time seen: 02/16/21 16:11 Interval history: Pt is a 85-year-old female here for weakness and hyponatremia. Patient was seen today and states she is feeling stronger although she does not feel back to baseline yet. She continues to have soft stool but she thinks it is improving. She did not notice any blood this morning which is an improvement. She denies nausea, vomiting, fevers, chills, leg swelling, chest pain or shortness of breath Exam Narrative: General: Well developed well nourished patient in NAD HEENT: normocephalic Neck: supple Neuro: Alert and oriented x4. Cranial nerves 2-12 intact. Equal strength the upper lower extremity 5/5. Able to do [id number] and rapid alternating movements CV:RRR Resp:CTA Abd: Soft, non distended. No pain to palpation. Positive bowel sounds Extremities: No swelling, erythema, or pain to palpation. Objective Data Vital Signs Vital Signs: Vital Signs - 24 hr 02/15/21 20:00 02/15/21 21:47 02/15/21 22:00 Temperature 97.3 F L Pulse Rate 74 74 Respiratory Rate 20 20 Blood Pressure 156/74 H Pulse Oximetry 100 99 100 02/16/21 06:00 02/16/21 08:00 02/16/21 08:24 Temperature 97.8 F Pulse Rate 63 Respiratory Rate 18 Blood Pressure 110/53 L Pulse Oximetry 99 98 98 02/16/21 08:45 02/16/21 14:00 Temperature 97.9 F Pulse Rate 88 64 Respiratory Rate 16 Blood Pressure 137/55 L Pulse Oximetry 100 Intake/Output Intake/Output: Intake & Output 02/13/21 02/14/21 02/15/21 02/16/21 23:59 23:59 23:59 23:59 Intake Total 1100 2850 830 Output Total 1250 900 Balance 1100 1600 -70 Meds/Results Medications: Active Medications Generic Name Dose Route Start Last Admin Trade Name Freq PRN Reason Stop Dose Admin Acetaminophen 1,000 mg 02/15/21 08:43 Acetaminophen 500 Mg Tablet PO DAILY PRN Pain Acetaminophen 1,000 mg 02/15/21 09:00 02/16/21 08:43 Acetaminophen 500 Mg Tablet PO 1,000 mg Q12H BURKE Administration Amlodipine Besylate 5 mg 02/15/21 09:00 02/16/21 08:44 Amlodipine Besylate 5 Mg Tablet PO 5 mg DAILY BURKE Administration Atenolol 25 mg 02/15/21 09:00 02/16/21 08:45 A
[2021-02-16 19:19] LABS: IFOB Positive Control Positive; Immunochemical Fecal Occult Bl Negative (N)
[2021-02-16] MEDS: PRAVASTATIN SODIUM 10 MG TABLET PO (20:10)
[2021-02-16 21:53] VITALS: BP 162/71; PULSE 78; RESP 18; TEMP 36.4; O2SAT 100
[2021-02-17] MEDS: metroNIDAZOLE 500 MG/ISO 100ML 500 MG/100 ML BAG 100 MG IVPB ×2 (02:02→10:52)
[2021-02-17 04:55] LABS: Osmolality, Urine 153 mOsm/kg (50-1200)
[2021-02-17 05:47] VITALS: BP 132/70; PULSE 81; RESP 18; TEMP 36.9; O2SAT 100
[2021-02-17 07:22] LABS: Hematocrit 31.2 % (37.0-47.0); Hemoglobin 10.8 g/dL (12.0-15.0)
[2021-02-17 08:00] VITALS: O2SAT 100
[2021-02-17] MEDS: ACETAMINOPHEN 500 MG TABLET 1000 MG PO (08:13)
[2021-02-17 08:14] VITALS: PULSE 84
[2021-02-17] MEDS: amLODIPine BESYLATE 5 MG TABLET PO (08:14)
[2021-02-17] MEDS: CIPROFLOXACIN 500 MG TAB PO (08:14)
[2021-02-17] MEDS: LORATADINE 10 MG TABLET PO (08:14)
[2021-02-17] MEDS: LORazepam (*CRX) 0.5 MG TABLET PO (08:14)
[2021-02-17] MEDS: atenoloL 25 MG TABLET PO (08:14)
[2021-02-17] MEDS: FOLIC ACID 1 MG TABLET PO (08:15)
[2021-02-17] MEDS: predniSONE 5 MG TABLET PO (08:15)
[2021-02-17] MEDS: PANTOPRAZOLE SOD SESQUIHYDRATE 20 MG TAB PO (08:15)
[2021-02-17 09:42] LABS: Albumin Level 4.1 g/dL (3.5-5.1); Anion Gap 12 mmol/L (8-16); Blood Urea Nitrogen 13 mg/dL (7-17); Calcium 9.3 mg/dL (8.4-10.2); Carbon Dioxide 21 mmol/L (22-30); Chloride 100 mmol/L (98-107); Creatine Kinase 229 U/L (30-135); Estimated CRCL calculation 49 ml/min; Estimated Glomerular Filt Rate > 60; Glucose 100 mg/dL (65-110); Magnesium 1.7 mg/dL (1.6-2.3); Phosphorus 3.3 mg/dL (2.5-4.5); Potassium 3.6 mmol/L (3.4-5.0); Sodium 133 mmol/L (137-145)
--- NOTE | 2021-02-17 11:03 | PM.DS ---
DS: Admitting Diagnosis Discharge Date 02/17/21 Admitting Diagnosis hyponatremia, colitis DS: Discharge Diagnosis Discharge Diagnosis (1) Hyponatremia: Code(s): E87.1 - Hypo-osmolality and hyponatremia Status: Acute Assessment and Plan: Patient's sodium was 114 on admission and improved to 133 today -records state on 08/16/20 she had a sodium of 132 -hydrochlorothiazide has been discontinued -patient to get a repeat BMP next week. She is switching primary is and has an appointment on February 24 with a chest HS and she is going to talk to them at that point (2) Colitis: Code(s): K52.9 - Noninfective gastroenteritis and colitis, unspecified Status: Acute Assessment and Plan: Outside records indicates she had sigmoid colitis -she is to continue the rest of her Cipro and Flagyl from home -I recommended that she call her foreign trade teacher and speak with their office about when to restart the methotrexate (3) Weakness: Code(s): R53.1 - Weakness Status: Acute Assessment and Plan: Improved with treatment of above. -continue home health (4) Hypertension: Code(s): I10 - Essential (primary) hypertension Status: Chronic Assessment and Plan: Last blood pressure 132/70 - Continue with atenolol and amlodipine. (5) Hyperlipidemia: Code(s): E78.5 - Hyperlipidemia, unspecified Status: Chronic Assessment and Plan: Chronic and stable, Continue with pravastatin. (6) Anxiety: Code(s): F41.9 - Anxiety disorder, unspecified Status: Chronic Assessment and Plan: Chronic and stable. Continue Ativan (7) Chronic GERD: Code(s): K21.9 - Gastro-esophageal reflux disease without esophagitis Status: Chronic Assessment and Plan: Continue Protonix (8) Rheumatoid arthritis: Code(s): M06.9 - Rheumatoid arthritis, unspecified Status: Chronic Assessment and Plan: Hold methotrexate due to possible infectious colitis, patient is to call their office to see when to restart DS: Summary Hospital Course Hospital Course: Patient is an 85-year-old female who presented emergency room February 14, 2021 after being discharged from [facility] with colitis for generalized weakness and soft stool with some blood. Vitals in the ER was temperature 36.6? C, pulse 89, respiratory rate 16, blood pressure 174/69, pulse ox 98 on room air. Initial CBC showed a white blood cell count 10, hemoglobin 11.6, hematocrit 31.4, platelets 250. BMP showed significant hyponatremia of 114. Patient was admitted to the hospitalist service. The patient's sodium improved gradually with the help of Nephrology and was 133 at discharge. Her colitis improved as well on oral antibiotics and she saw GI while hospitalized. The plan to do a colonoscopy in 6-8 weeks outpatient. Her weakness improved with the treatment as well as physical therapy and she will be discharged home with home health. Overall, the patient was feeling much better and ready to go. She was educated about the worrisome signs and symptoms come back to emergency room for and was discharged in stable condition. Please see above for further details. She is to get a repeat BMP in 1 week to ensure her sodium remains stable. She is getting a new primary next week and will talk to them about this. Time Spent with Patient Time attestation: Total time spent providing and/or coordinating discharge services: Exam Narrative: General: Well developed well nourished patient in NAD HEENT: normocephalic Neck: supple Neuro: Alert and oriented x4. Cranial nerves 2-12 intact. Equal strength the upper lower extremity 5/5. Able to do [id number] and rapid alternating movements CV:RRR Resp:CTA Abd: Soft, non distended. No pain to palpation. Positive bowel sounds Extremities: No swelling, erythema, or pain to palpation. DS
--- NOTE | 2021-02-17 15:22 | WPDGIPROGNO ---
Progress Note: A&P Assessment and Plan (1) Colitis: Code(s): K52.9 - Noninfective gastroenteritis and colitis, unspecified Status: Acute Assessment and Plan: she is feeling much better and ready to go home with oral antibiotics we can do colonoscopy 6-8 weeks as outpatient (2) Nausea and vomiting in adult: Code(s): R11.2 - Nausea with vomiting, unspecified Status: Acute Assessment and Plan: resolved, tolerating diet (3) Hyponatremia: Code(s): E87.1 - Hypo-osmolality and hyponatremia Status: Acute Assessment and Plan: monitoring closely and improved (4) Rheumatoid arthritis: Code(s): M06.9 - Rheumatoid arthritis, unspecified Status: Chronic (5) Diarrhea: Code(s): R19.7 - Diarrhea, unspecified Status: Acute Subjective Date/time seen: 02/17/21 13:00 Interval history: she is doing much better and ready to go home later today, tolerating diet Review of Systems Review of Systems: All systems reviewed & are unremarkable except as noted in HPI and below Exam Const: General: comfortable and no acute distress HENMT: General nose exam: Normal nares present Eyes: General: appearance normal, both eyes and all related structures Neck: Neck: no JVD Resp: Auscultation: clear to auscultation bilaterally Cardio: Rate: regular rate Rhythm: regular rhythm GI: Inspection: non-distended GI Palp: Yes Soft to palpation and No Guarding due to palpation present (GI) Auscultation: normal bowel sounds Skin: General skin exam: normal color Neuro: Speech: normal speech Motor exam (neuro): Normal motor muscle tone present throughout Extrem: General: normal to inspection Psych: Mental Status: mental status grossly normal Objective Data Vital Signs Vital Signs: Vital Signs - 24 hr 02/16/21 21:53 02/17/21 05:47 02/17/21 08:00 Temperature 97.6 F 98.5 F Pulse Rate 78 81 Respiratory Rate 18 18 Blood Pressure 162/71 H 132/70 Pulse Oximetry 100 100 100 02/17/21 08:14 Temperature Pulse Rate 84 Respiratory Rate Blood Pressure Pulse Oximetry Intake/Output Intake/Output: Intake & Output 02/14/21 02/15/21 02/16/21 02/17/21 23:59 23:59 23:59 23:59 Intake Total 1100 2850 1820 850 Output Total 1250 1200 800 Balance 1100 1600 620 50 Meds/Results Radiology Results: ITS Impressions Chest X-Ray 02/14/21 18:40 IMPRESSION: 1. No acute cardiopulmonary abnormality. Labs Labs: Laboratory Results - last 24 hr 02/15/21 02/16/21 02/17/21 05:52 18:49 06:32 Hgb Hct Sodium 133 L Potassium 3.6 Chloride 100 Carbon Dioxide 21 L Anion Gap 12 BUN 13 Creatinine 0.60 L Estim Creat Clear Calc 49 Estimated GFR > 60 Glucose 100 Calcium 9.3 Phosphorus 3.3 Magnesium 1.7 Total Creatine Kinase 229 H Albumin 4.1 Urine Osmolality 153 Stl Occult Blood (IFOB) Negative 02/17/21 06:32 Hgb 10.8 L Hct 31.2 L Sodium Potassium Chloride Carbon Dioxide Anion Gap BUN Creatinine Estim Creat Clear Calc Estimated GFR Glucose Calcium Phosphorus Magnesium Total Creatine Kinase Albumin Urine Osmolality Stl Occult Blood (IFOB) Amg Follow-up Billing Inpatient Follow-up [id number] Subsq Hosp Care Mod
[2021-02-17 19:40] LABS: Creatinine, Random Urine 35 mg/dL (20-275); Total Protein/Creatinine Ratio 143 mg/g creat (21-161)
[2021-02-18 06:19] LABS: Kappa\\Lambda Light Chains 1.31 (0.26-1.65); Lambda Light Chain 10.6 mg/L (5.7-26.3)
[2021-02-19 05:07] LABS: Albumin 3.6 g/dL (3.8-4.8); Alpha 1 Globulin 0.3 g/dL (0.2-0.3); Alpha 2 Globulin 0.7 g/dL (0.5-0.9); Beta 1 Globulin 0.4 g/dL (0.4-0.6); Gamma Globulin 0.7 g/dL (0.8-1.7); Interpretation Consistent with; Protein, Total 5.8 g/dL (6.1-8.1)
[2021-02-20 15:04] LABS: Chloride Rand Ur 35 mmol/L (32-290); Chloride/Creatinine Rand Ur 103 (38-318); Creatinine Random Urine 34 mg/dL (20-275)
== END 2021-02-17 14:15 | disposition home health service (06) | DRG 392 ==
LOC: ANHED 16:16 → ANH3MEDSUR 17:05
PROVIDERS: Internal Medicine Nephrology; Nurse Practitioner; Physician Assistant; Admitting Provider Family Medicine; Emergency Provider Emergency Medicine; PCP Internal Medicine; Visit Provider Family Medicine
DX: K52.9 Noninfective gastroenteritis and colitis, unspecified (principal); E87.1 Hypo-osmolality and hyponatremia; I10 Essential (primary) hypertension; E78.5 Hyperlipidemia, unspecified; F41.9 Anxiety disorder, unspecified; K21.9 Gastro-esophageal reflux disease without esophagitis; M06.9 Rheumatoid arthritis, unspecified; Z96.642 Presence of left artificial hip joint; Z96.652 Presence of left artificial knee joint; Z90.49 Acquired absence of other specified parts of digestive tract; Z90.710 Acquired absence of both cervix and uterus; Z98.41 Cataract extraction status, right eye; Z98.42 Cataract extraction status, left eye
CPT/HCPCS: 36415; 71045; 80048; 80053; 80069; 81050; 82274; 82436; 82533; 82550; 82570; 83605; 83615; 83735; 83883; 83930; 83935; 84155; 84156; 84165; 84166; 84295; 84300; 84443; 85014; 85018; 85025; 85027; 85610; 85730; 86140; 86850; 86900; 86901; 93005; 93306; 96361; 96374; 97110; 97116; 97161; 97165; 97530; 97535; 99285; A9270; G0378; J1885; J2405; J7030; J7060; J7512